=== PATIENT | male | born 1965 | race Hispanic/Latino ===

== ENCOUNTER → 2022-02-06 | Outpatient (CLI) | payer OTHER ==
[~2022-02-06] VITALS: Ht 172.7 cm; Wt 105.2 kg
[~2022-02-06] MED LIST: REGADENOSON 0.4 MG/5 ML PF SYG IVP SCH
== END ==
LOC: SHCH 09:52
PROVIDERS: ATTEND Internal Medicine
DX: R07.9 Chest pain, unspecified (principal); R06.02 Shortness of breath
CPT/HCPCS: 78452; 93017; 96374; A9500 ×2; J2785

== ENCOUNTER → 2022-12-08 | Outpatient (CLI) | payer OTHER | END | disposition home or self-care (01) | LOC: SHCH 13:51 | PROVIDERS: ATTEND Student in an Organized Health Care Education/Training Program | DX: R07.9 Chest pain, unspecified (principal) | CPT/HCPCS: 93306 ==

== ENCOUNTER → 2022-12-31 | Outpatient (CLI) | payer OTHER ==
[2022-12-31 15:58] LABS: POTASSIUM 4.1 mmol/L (3.5-5.1)
== END | disposition home or self-care (01) ==
LOC: LAB 13:14
PROVIDERS: ATTEND Student in an Organized Health Care Education/Training Program
DX: R07.9 Chest pain, unspecified (principal)
CPT/HCPCS: 36415; 80048

== ENCOUNTER → 2023-01-10 | Outpatient (CLI) | payer OTHER ==
[~2023-01-10] MED LIST changes: +IOHEXOL 350 MG/ML 100ML INFUS..BTL IV ONE; -REGADENOSON 0.4 MG/5 ML PF SYG IVP SCH
== END | disposition home or self-care (01) ==
LOC: RAH 11:05
PROVIDERS: ATTEND Student in an Organized Health Care Education/Training Program
DX: I25.10 Atherosclerotic heart disease of native coronary artery without angina pectoris (principal); R07.9 Chest pain, unspecified; M47.815 Spondylosis without myelopathy or radiculopathy, thoracolumbar region
CPT/HCPCS: 75574; Q9967

== ENCOUNTER 2023-02-12 05:46 | Day surgery (SDC) | payer OTHER ==
[2023-02-08 11:22] VITALS: BP 140/79
[2023-02-08 11:22] LABS: BASOPHILS % (AUTO) 0.5 % (0.0-5.0); EOSINOPHILS % (AUTO) 3.2 % (0.0-8.0); HEMATOCRIT 38.1 % (42-54); LYMPHOCYTES % (AUTO) 45.7 % (21.0-51.0); MEAN CORPUSCULAR HEMOGLOBIN 29.7 pg (27.0-33.0); MEAN CORPUSCULAR HGB CONC 33.9 g/dL (32.0-36.0); MEAN CORPUSCULAR VOLUME 87.8 fL (79-99); MONOCYTES % (AUTO) 6.7 % (3.0-13.0); NEUTROPHILS % (AUTO) 43.7 % (40.0-77.0); PLATELET COUNT (AUTO) 202 K/uL (130-400); RED BLOOD CELL COUNT(AUTO) 4.34 MIL/uL (4.50-6.20); RED CELL DISTRIBUTION WIDTH 13.2 % (11.0-15.5); WHITE BLOOD COUNT (AUTO) 5.6 K/uL (4.8-10.8)
[2023-02-08 11:27] LABS: POTASSIUM 3.4 mmol/L (3.5-5.1)
[2023-02-08 11:29] LABS: INR 1.04 (0.85-1.15); PROTHROMBIN TIME 11.3 SEC (9.6-11.6)
[2023-02-08 11:30] LABS: PARTIAL THROMBOPLASTIN TIME 27.2 SEC (26.3-35.5)
[2023-02-08 11:58] LABS: B-TYPE NATRIURETIC PEPTIDE 19 pg/mL (0-100)
[2023-02-08 12:10] LABS: APPEARANCE,URINE CLEAR (CLEAR); BILIRUBIN,URINE NEGATIVE (NEGATIVE); COLOR,URINE COLORLESS (YELLOW); GLUCOSE, URINE (UA) NEGATIVE (NEGATIVE); KETONES,URINE NEGATIVE (NEGATIVE); LEUKOCYTE ESTERASE ,URINE NEGATIVE Leu/uL (NEGATIVE); NITRATE,URINE NEGATIVE (NEGATIVE); OCCULT BLOOD,URINE NEGATIVE (NEGATIVE); PH,URINE 5.5 (5.0-8.0); PROTEIN,URINE NEGATIVE (NEGATIVE); UROBILINOGEN,URINE 0.2 mg/dL (0.2-1.0)
[2023-02-12] VITALS (9 sets, daily range): BP systolic 133–185; BP diastolic 70–105
[~2023-02-12] VITALS: Ht 172.7 cm; Wt 105.5 kg
[~2023-02-12 05:46] MED LIST changes: +ALPR2TAB7 PO; +ATOR10 PO; +CARV25TA PO; -IOHEXOL 350 MG/ML 100ML INFUS..BTL IV ONE; +LEVE-43 PO; +METF-444 PO; +OXYC30TA2 PO
[2023-02-12] MEDS ORDERED: 0.9%NACL 1000ML 1,000 ML IV ONE (06:13)
[2023-02-12] MEDS ORDERED: HEPARIN 10,000 UNIT/10ML (1,000 UNIT/ML) VIAL ONE (07:24)
[2023-02-12] MEDS ORDERED: LIDOCAINE HCL 400MG/20ML VIAL ONE (07:24)
[2023-02-12] MEDS ORDERED: IOHEXOL 350 MG/ML 100ML INFUS..BTL IV ONE (07:24)
[2023-02-12] MEDS ORDERED: NITROGLYCERIN 50MG VIAL ONE (07:24)
[2023-02-12] MEDS ORDERED: FENTANYL CITRATE PF 50 MCG/1 ML 2ML VIAL ONE ×2 (07:24→08:51)
[2023-02-12] MEDS ORDERED: IOHEXOL-350 50ML VIAL IV ONE (07:24)
[2023-02-12] MEDS ORDERED: VERAPAMIL HCL 2.5 MG/ML VIAL ONE (07:24)
[2023-02-12] MEDS ORDERED: MIDAZOLAM HCL 1 MG/ML 2ML VIAL ONE (07:24)
[2023-02-12] MEDS ORDERED: ATROPINE 1MG SYG IVP ONE (07:34)
[2023-02-12] MEDS ORDERED: DiphenhydrAMINE HCL 50 MG/ML VIAL ONE (07:48)
[2023-02-12] MEDS ORDERED: DEXTROSE 50%-WATER 50 ML DISP.SYRIN IV PRN (08:30)
[2023-02-12] MEDS ORDERED: GLUCAGON 1MG KIT 1 MG ML IM PRN (08:30)
[2023-02-12] MEDS ORDERED: SPIRONOLACTONE 25 MG TAB PO SCH (09:00)
[2023-02-12] MEDS ORDERED: ALPRAZOLAM 1 MG TAB ONE (09:53)
[2023-02-12] MEDS ORDERED: OXYCODONE HCL 30 MG TABLET PO ONE (09:53)
== END 2023-02-12 11:25 | disposition home or self-care (01) ==
LOC: DAH 05:46
PROVIDERS: ATTEND Student in an Organized Health Care Education/Training Program
DX: I25.118 Atherosclerotic heart disease of native coronary artery with other forms of angina pectoris (principal); I25.82 Chronic total occlusion of coronary artery; I11.0 Hypertensive heart disease with heart failure; I50.32 Chronic diastolic (congestive) heart failure; F17.210 Nicotine dependence, cigarettes, uncomplicated; E78.5 Hyperlipidemia, unspecified; Z79.84 Long term (current) use of oral hypoglycemic drugs; Z79.899 Other long term (current) drug therapy; Z98.890 Other specified postprocedural states; Z79.82 Long term (current) use of aspirin; Z79.01 Long term (current) use of anticoagulants
CPT/HCPCS: 80048; 83880; 85025; 85610; 85730; 81003; 36415; 71045; 93005; 93458; 82948 ×2; C1769; C1894; J1200; J3010 ×2; J3490 ×3; J7030; J1644 ×2; J2250; Q9967; A4215; A4222; A6260; A4221; A4663; A4216; A6206; A4606; A4223 ×3; 99156; 99157; J0461